=== PATIENT | male | born 1960 | race Asian ===

== ENCOUNTER 2017-12-27 19:32 | Emergency (ER) | payer OTHER ==
[~2017-12-27] VITALS: Ht 165.1 cm; Wt 56.7 kg
[~2017-12-27 19:32] MED LIST: FAMOTIDINE20 MG ORAL; NEXIUM20 MG ORAL; NORVASC5 MG ORAL
[2017-12-27] MEDS ORDERED: OMEGA 3 FISH O1 EAC1 PO (19:40)
[2017-12-27] MEDS ORDERED: ATORVASTATIN CA40 MG ORAL (19:40)
[2017-12-27] MEDS ORDERED: PANTOPRAZOLE SO40 MG ORAL (19:40)
[2017-12-27] MEDS ORDERED: BENADRYL25 MG ORAL (19:40)
[2017-12-27 19:45] VITALS: BP 129/67
[2017-12-27] MEDS ORDERED: Mylanta II UD 30ml ORAL ONE (20:00)
[2017-12-27] MEDS ORDERED: Dicyclomine HCl 10mg/5ml oral soln ORAL ONE (20:00)
[2017-12-27] MEDS ORDERED: Lidocaine 2% Visc 15ml soln ORAL ONE (20:00)
[2017-12-27 20:30] LABS: APPEARANCE,URINE CLEAR; BILIRUBIN, URINE NEGATIVE (NEGATIVE); COLOR,URINE PALE YELLOW; GLUCOSE, URINE (UA) NEGATIVE (NEGATIVE); KETONES,URINE 1+ (NEGATIVE); LEUKOCYTE ESTERASE ,URINE NEGATIVE (NEGATIVE); NITRITE,URINE NEGATIVE (NEGATIVE); PH,URINE 5 (4.5-8.0); PROTEIN,URINE NEGATIVE (NEGATIVE); UROBILINOGEN,URINE NORMAL (NORMAL)
[2017-12-27 20:34] LABS: BASOPHILS % (AUTO) 0.4 % (0.0-2.0); EOSINOPHILS % (AUTO) 1.9 % (0.0-3.0); HEMATOCRIT 41.8 % (42.0-52.0); LYMPHOCYTES % (AUTO) 42.4 % (20.0-45.0); MEAN CORPUSCULAR VOLUME 91 FL (80-99); MONOCYTES % (AUTO) 9.3 % (1.0-10.0); PLATELET COUNT 154 K/UL (150-450); RED CELL DISTRIBUTION WIDTH 10.6 % (11.6-14.8); WHITE BLOOD COUNT 6.3 K/UL (4.8-10.8)
[2017-12-27 20:44] LABS: ANION GAP 7 mmol/L (5-15); BLOOD UREA NITROGEN 17 mg/dL (7-18); CALCIUM 9.1 MG/DL (8.5-10.1); CARBON DIOXIDE 27 MMOL/L (21-32); CHLORIDE 106 MMOL/L (98-107); CREATININE 0.8 MG/DL (0.55-1.30); POTASSIUM 3.9 MMOL/L (3.5-5.1); SODIUM 140 MMOL/L (136-145)
[2017-12-27 20:45] VITALS: BP 139/67
[2017-12-27 20:48] LABS: ALANINE AMINOTRANSFERASE 75 U/L (12-78); ALBUMIN 3.9 G/DL (3.4-5.0); ALKALINE PHOSPHATASE 100 U/L (46-116); ASPARTATE AMINO TRANSFERASE 37 U/L (15-37); BILIRUBIN,TOTAL 0.7 MG/DL (0.2-1.0)
--- NOTE | 2017-12-27 21:19 | Emergency Room Report ---
History of Present Illness General Chief Complaint: Abdominal Pain Source: Patient Present Illness HPI Patient presents emergency department today complaining of epigastric pain. Patient states that he has had epigastric pain for about 2 months but progressively became worse so he came here for further evaluation. Patient does have history heavy drinking the past please no longer drinking. He denies any fever. Denies any chest pain. Has some mild nausea. Denies any vomiting diarrhea chills. Symptoms noted to be moderate to severe.No other modifying factors. No other associated signs and symptoms. No other complaints were noted. Allergies: Coded Allergies: ASPIRIN (Verified Allergy, Unknown, 01/06/16) Patient History Past Medical History: none Past Surgical History: none Pertinent Family History: none Social History: Denies: smoking, alcohol use, drug use Reviewed Nursing Documentation: PMH: Agreed; PSxH: Agreed Nursing Documentation-PMH Hx Cardiac Problems: Yes - "abnormal heart beat" Hx Hypertension: Yes Hx Cancer: No Hx Gastrointestinal Problems: Yes Hx Neurological Problems: No - alcohol abuse- quit 08/2017 Review of Systems All Other Systems: negative except mentioned in HPI Physical Exam Vital Signs Date Time Temp Pulse Resp B/P (MAP) Pulse Ox O2 Delivery O2 Flow Rate FiO2 12/27/17 19:34 98.1 65 16 130/88 97 Room Air 98.1 Sp02 EP Interpretation: reviewed, normal General Appearance: normal inspection, well appearing, no apparent distress, alert Head: atraumatic Eyes: bilateral eye normal inspection ENT: normal ENT inspection, hearing grossly normal, normal voice Neck: normal inspection, full range of motion, supple, no bony tend Respiratory: normal inspection, lungs clear, normal breath sounds, no respiratory distress, no retraction, no wheezing Cardiovascular #1: regular rate, rhythm, no edema Gastrointestinal: normal inspection, normal bowel sounds, soft, no guarding, no hernia, tenderness - epigastric Genitourinary: no CVA tenderness Musculoskeletal: normal inspection, back normal, normal range of motion Neurologic: normal inspection, alert, responsive, speech normal Psychiatric: normal inspection, judgement/insight normal, mood/affect normal Skin: normal inspection, normal color, no rash Medical Decision Making Diagnostic Impression: Primary Impression: Gastritis Additional Impression: Pancreatitis ER Course Patient presents to the emergency department today complaining of abdominal pain. Differential considerations include acute pancreatitis, cholecystitis, gastritis, hepatitis, appendicitis just to name a few. Patient laboratory workup is consistent with hepatitis with elevated pancreatic enzymes. 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 Given patient's presentation abdominal pain I discussed the patient and possibly admission versus discharge patient wants to be admitted given patient's bowel pain I felt this is reasonable and elevated lipase. We'll obtain admission. Labs Test 12/27/17 20:10 White Blood Count 6.3 K/UL (4.8-10.8) Red Blood Count 4.60 M/UL (4.70-6.10) Hemoglobin 14.0 G/DL (14.2-18.0) Hematocrit 41.8 % (42.0-52.0) Mean Corpuscular Volume 91 FL (80-99) Mean Corpuscular Hemoglobin 30.4 PG (27.0-31.0) Mean Corpuscular Hemoglobin Concent 33.4 G/DL (32.0-36.0) Red Cell Distribution Width 10.6 % (11.6-14.8) Platelet Count 154 K/UL (150-450) Mean Platelet Volume 6.4 FL (6.5-10.1) Neutrophils (%) (Auto) 46.0 % (45.0-75.0) Lymphocytes (%) (Auto) 42.4 % (20.0-45.0) Monocytes (%) (Auto) 9.3 % (1.0-10.0) Eosinophils (%) (Auto) 1.9 % (0.0-3.0) Basophils (%) (Auto) 0.4 % (0.0-2.0) Urine Color Pale yellow Urine Appearance Clear Urine pH 5 (4.5-8.0) Urine Specific [place] 1.025 (1.005-1.035) Urine Protein Negative (NEGATIVE) Urine Glucose (UA) Negative (NEGATIVE) Urine Ketones 1+ (NEGATIVE) Urine Occult Blood Negative (NEGATIVE) Urine Nitrite Negative (NEGATIVE) Urine Bilirubin Negative (NEGATIVE) Urine Urobilinogen Normal MG/DL (NORMAL) Urine Leukocyte Esterase Negative (NEGATIVE) Sodium Level 140 MMOL/L (136-145) Potassium Level 3.9 MMOL/L (3.5-5.1) Chloride Level 106 MMOL/L (98-107) Carbon Dioxide Level 27 MMOL/L (21-32) Anion Gap 7 mmol/L (5-15) Blood Urea Nitrogen 17 mg/dL (7-18) Creatinine 0.8 MG/DL (0.55-1.30) Estimat Glomerular Filtration Rate > 60 mL/min (>60) Glucose Level 107 MG/DL (74-106) Calcium Level 9.1 MG/DL (8.5-10.1) Total Bilirubin 0.7 MG/DL (0.2-1.0) Aspartate Amino Transf (AST/SGOT) 37 U/L (15-37) Alanine Aminotransferase (ALT/SGPT) 75 U/L (12-78) Alkaline Phosphatase 100 U/L (46-116) Total Protein 7.8 G/DL (6.4-8.2) Albumin 3.9 G/DL (3.4-5.0) Globulin 3.9 g/dL Albumin/Globulin Ratio 1.0 (1.0-2.7) Lipase 733 U/L (73-393) CT/MRI/US Diagnostic Results CT/MRI/US Diagnostic Results : Imaging Test Ordered: cT abdomen Avascular cirrhosis of the hips. Last Vital Signs Date Time Temp Pulse Resp B/P (MAP) Pulse Ox O2 Delivery O2 Flow Rate FiO2 12/27/17 19:45 98.1 66 16 129/67 100 Room Air 98.1 Status: improved Disposition: ADMITTED INPATIENT Condition: Serious Referrals: [facility],REFERRING (PCP) Heber Vance MD Dec 27, 2017 21:19
[2017-12-27 21:35] VITALS: BP 134/72
[2017-12-27 22:45] VITALS: BP 130/73
[2017-12-28 01:00] VITALS: BP 130/73
--- NOTE | 2017-12-28 09:23 | Diagnostic Imaging Report ---
Indication: Abdominal pain Technique: Noncontrast CT of the abdomen and pelvis utilizing automated exposure control. Axial, sagittal and coronal reformats presented. CT dose: Total DLP 542.15 mGycm; CTDI vol 10.68 mGy Comparison: None Findings: Please note that evaluation of the abdominal and pelvic viscera and vascular structures is limited without the use of intravenous and oral contrast. Within these limitations the following observations are made: Minimal dependent atelectasis noted in the posterior lower lobes. Some coronary arterial calcifications are noted. Heart size within normal limits. No pericardial effusion. Gallbladder is contracted, likely related to a nonfasting state. No definite CT evidence to suggest acute cholecystitis. Noncontrast evaluation of the liver, spleen, adrenal glands and pancreas grossly unremarkable. Kidneys are symmetric in size. No urinary tract stone or hydronephrosis identified bilaterally. Bladder and prostate unremarkable. There is no free intraperitoneal air or fluid. No evidence of small bowel obstruction. There is moderate colonic stool burden. Appendix not definitively identified however there is no focal inflammatory stranding in the right lower quadrant to suggest acute appendicitis. Abdominal aorta is normal in caliber with overall mild atherosclerotic calcifications. No bulky/conglomerate lymphadenopathy appreciated. There are degenerative changes in the lumbar spine. There is evidence of avascular necrosis of the bilateral hips. IMPRESSION: Limited exam without intravenous and oral contrast. Within these limitations: * No evidence of bowel obstruction or inflammation. Appendix not definitively identified however no focal inflammatory stranding the right lower quadrant to suggest acute appendicitis. * No urinary tract stone or hydronephrosis. * Gallbladder contracted, likely related to nonfasting state. No CT evident gallstones or evidence of pericholecystic inflammation. * Avascular necrosis of the bilateral hips. This corresponds with the statrad preliminary report. The CT scanner at [facility] is accredited by the [employer] and the scans are performed using protocols designed to limit radiation exposure to as low as reasonably achievable to attain images of sufficient resolution adequate for diagnostic evaluation.
== END 2017-12-28 01:00 | disposition other institution (70) ==
LOC: EMR 20:15
DX: K29.70 Gastritis, unspecified, without bleeding (principal); K85.90 Acute pancreatitis without necrosis or infection, unspecified; Z88.6 Allergy status to analgesic agent; I10 Essential (primary) hypertension; M87.9 Osteonecrosis, unspecified
CPT/HCPCS: 36415; 74176; 80053; 81003; 83690; 85025; 99284; J2405

== ENCOUNTER 2019-02-13 12:37 | Emergency (ER) | payer OTHER ==
[~2019-02-13] VITALS: Ht 165.1 cm; Wt 61.2 kg
[~2019-02-13 12:37] MED LIST changes: +ATORVASTATIN CA40 MG ORAL; +BENADRYL25 MG ORAL; +OMEGA 3 FISH O1 EAC1 PO; +PANTOPRAZOLE SO40 MG ORAL
[2019-02-13 12:46] VITALS: BP 148/86
--- NOTE | 2019-02-13 12:50 | NUR ---
ED Nurse Note: pt walked in to ER from home due to chest pain 07/30 for 2 days. per pt chest pain started from Lt side and does not radiate. it started 09/29 and now 07/30. pt aao x4 and ambulatory. skin clean and intact. calm and cooperative. no acute distress noted at this time. 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
--- NOTE | 2019-02-13 13:11 | NUR ---
ED Nurse Note: x-ray at bedside.
[2019-02-13 13:20] LABS: BASOPHILS % (AUTO) 0.8 % (0.0-2.0); EOSINOPHILS % (AUTO) 0.9 % (0.0-3.0); HEMATOCRIT 45.7 % (42.0-52.0); HEMOGLOBIN 15.2 G/DL (14.2-18.0); LYMPHOCYTES % (AUTO) 37.8 % (20.0-45.0); MEAN CORPUSCULAR VOLUME 90 FL (80-99); MONOCYTES % (AUTO) 8.3 % (1.0-10.0); NEUTROPHILS % (AUTO) 52.2 % (45.0-75.0); PLATELET COUNT 199 K/UL (150-450); RED BLOOD COUNT 5.07 M/UL (4.70-6.10); RED CELL DISTRIBUTION WIDTH 10.7 % (11.6-14.8); WHITE BLOOD COUNT 8.3 K/UL (4.8-10.8)
[2019-02-13 13:27] LABS: ANION GAP 8 mmol/L (5-15); BLOOD UREA NITROGEN 11 mg/dL (7-18); CALCIUM 9.3 MG/DL (8.5-10.1); CARBON DIOXIDE 28 MMOL/L (21-32); CHLORIDE 103 MMOL/L (98-107); CREATININE 0.8 MG/DL (0.55-1.30); POTASSIUM 3.7 MMOL/L (3.5-5.1); SODIUM 139 MMOL/L (136-145)
[2019-02-13 13:42] LABS: ALANINE AMINOTRANSFERASE 66 U/L (12-78); ALBUMIN 4.3 G/DL (3.4-5.0); ALBUMIN/GLOBULIN RATIO 1.1 (1.0-2.7); ALKALINE PHOSPHATASE 88 U/L (46-116); ASPARTATE AMINO TRANSFERASE 30 U/L (15-37); BILIRUBIN,TOTAL 1.1 MG/DL (0.2-1.0); CKMB 1.8 NG/ML (0.0-3.6); CREATINE KINASE 147 U/L (26-308)
[2019-02-13 13:52] LABS: BILIRUBIN,DIRECT 0.2 MG/DL (0.0-0.3)
--- NOTE | 2019-02-13 13:56 | Diagnostic Imaging Report ---
Indication: Chest pain Comparison: 02/03/2016 A single view chest radiograph was obtained. Findings: Cardiomediastinal appearance is within normal limits for age. The lungs are clear. Pulmonary vascularity is appropriate. The diaphragmatic contour is smooth and costophrenic angles are sharp. No pleural effusions are identified. The bones are unremarkable. Impression: No acute findings
--- NOTE | 2019-02-13 14:02 | NUR ---
ER DISCHARGE NOTE: Patient is cleared to be discharged per ERMD, pt is aox4, on room air, with stable vital signs. pt was given dc and prescription instructions, pt was able to verbalize understanding, pt id band and iv site removed without complications. pt is able to ambulate with steady gait. pt took all belongings.
[2019-02-13 14:03] VITALS: BP 130/72
--- NOTE | 2019-02-13 14:15 | Emergency Room Report ---
History of Present Illness General Chief Complaint: Chest Pain Source: Patient Present Illness HPI 58-year-old male presents ED for evaluation. Complaining of chest pain. Midsternal, dull, 7 out of 10, nonradiating. Comes and goes. Denies symptoms at this time. Started 2 days ago. Does note history of acid reflux. Denies shortness of breath. No other aggravating relieving factors. Denies any other associated symptoms Allergies: Coded Allergies: ASPIRIN (Verified Allergy, Unknown, 01/06/16) Patient History Past Medical History: HTN, GERD Past Surgical History: none Pertinent Family History: none Social History: Denies: smoking, alcohol use, drug use Immunizations: UTD Reviewed Nursing Documentation: PMH: Agreed; PSxH: Agreed Nursing Documentation-PMH Past Medical History: No History, Except For Hx Cardiac Problems: Yes - PVC Hx Hypertension: Yes Hx Cancer: No Hx Gastrointestinal Problems: Yes Hx Neurological Problems: No - alcohol abuse- quit 08/2017 Review of Systems All Other Systems: negative except mentioned in HPI Physical Exam Vital Signs Date Time Temp Pulse Resp B/P (MAP) Pulse Ox O2 Delivery O2 Flow Rate FiO2 02/13/19 12:40 98.1 68 20 148/86 (106) 99 Room Air Sp02 EP Interpretation: reviewed, normal General Appearance: no apparent distress, alert, GCS 15, non-toxic Head: normocephalic, atraumatic Eyes: bilateral eye normal inspection, bilateral eye PERRL ENT: hearing grossly normal, normal pharynx, no angioedema, normal voice Neck: full range of motion, supple/symm/no masses Respiratory: chest non-tender, lungs clear, normal breath sounds, speaking full sentences Cardiovascular #1: regular rate, rhythm, no edema Cardiovascular #2: 2+ carotid (R), 2+ carotid (L), 2+ radial (R), 2+ radial (L) , 2+ dorsalis pedis (R), 2+ dorsalis pedis (L) Gastrointestinal: normal bowel sounds, non tender, soft, non-distended, no guarding, no rebound Rectal: deferred Genitourinary: normal inspection, no CVA tenderness Musculoskeletal: back normal, gait/station normal, normal range of motion, non- tender Neurologic: alert, oriented x3, responsive, motor strength/tone normal, sensory intact, speech normal Psychiatric: judgement/insight normal, memory normal, mood/affect normal, no suicidal/homicidal ideation Reflexes: 3+ bicep (R), 3+ bicep (L), 3+ tricep (R), 3+ tricep (L), 3+ knee (R) , 3+ knee (L) Lymphatic: no adenopathy Medical Decision Making Diagnostic Impression: Primary Impression: Chest pain Qualified Codes: R07.9 - Chest pain, unspecified ER Course Hospital Course 58-year-old M presents ED complaining of chest pain Differential diagnoses include: Rib fracture, CT/unstable angina, contusion, muscle strain Clinical course Patient placed on stretcher. After initial history and physical I ordered labs , EKG, chest x-ray. labs reviewed- all electrolytes normal, troponins negative, no leukocytosis, hemoglobin/hematocrit stable EKG - NSR, no acute ischemic changes interpreted by me Chest x-ray-no cardiomegaly, no rib fracture, no pneumothorax, no acute process i discussed with patient. Patient was seen here and admitted for ACS previously. During that hospitalization cardiology evaluation deemed chest pain is atypical. Based on symptomatology for 2 days with negative troponin and normal EKG I believe patient can be discharged home. Close outpatient follow-up. States he has a PMD I. I feel this is a highly complex case requiring extensive working including EKG/Rhythm strip, Xray/CT/US, Blood/urine lab work, repeat exams while in ED, and administration of strong opiates/narcotics for pain control, admission to hospital or close patient follow up. Diagnosis - chest pain Stable and discharged to home. Instructed to followup with PMD. Return to ED if symptoms recur or worsen Labs Test 02/13/19 12:55 White Blood Count 8.3 K/UL (4.8-10.8) Red Blood Count 5.07 M/UL (4.70-6.10) Hemoglobin 15.2 G/DL (14.2-18.0) Hematocrit 45.7 % (42.0-52.0) Mean Corpuscular Volume 90 FL (80-99) Mean Corpuscular Hemoglobin 30.0 PG (27.0-31.0) Mean Corpuscular Hemoglobin Concent 33.3 G/DL (32.0-36.0) Red Cell Distribution Width 10.7 % (11.6-14.8) Platelet Count 199 K/UL (150-450) Mean Platelet Volume 5.9 FL (6.5-10.1) Neutrophils (%) (Auto) 52.2 % (45.0-75.0) Lymphocytes (%) (Auto) 37.8 % (20.0-45.0) Monocytes (%) (Auto) 8.3 % (1.0-10.0) Eosinophils (%) (Auto) 0.9 % (0.0-3.0) Basophils (%) (Auto) 0.8 % (0.0-2.0) Sodium Level 139 MMOL/L (136-145) Potassium Level 3.7 MMOL/L (3.5-5.1) Chloride Level 103 MMOL/L (98-107) Carbon Dioxide Level 28 MMOL/L (21-32) Anion Gap 8 mmol/L (5-15) Blood Urea Nitrogen 11 mg/dL (7-18) Creatinine 0.8 MG/DL (0.55-1.30) Estimat Glomerular Filtration Rate > 60 mL/min (>60) Glucose Level 99 MG/DL (74-106) Calcium Level 9.3 MG/DL (8.5-10.1) Total Bilirubin 1.1 MG/DL (0.2-1.0) Direct Bilirubin 0.2 MG/DL (0.0-0.3) Aspartate Amino Transf (AST/SGOT) 30 U/L (15-37) Alanine Aminotransferase (ALT/SGPT) 66 U/L (12-78) Alkaline Phosphatase 88 U/L (46-116) Total Creatine Kinase 147 U/L (26-308) Creatine Kinase MB 1.8 NG/ML (0.0-3.6) Creatine Kinase MB Relative Index 1.2 Troponin I 0.000 ng/mL (0.000-0.056) Pro-B-Type Natriuretic Peptide 20 pg/mL (0-125) Total Protein 8.3 G/DL (6.4-8.2) Albumin 4.3 G/DL (3.4-5.0) Globulin 4.0 g/dL Albumin/Globulin Ratio 1.1 (1.0-2.7) EKG Diagnostic Results Rate: normal Rhythm: NSR ST Segments: no acute changes ASA given to the pt in ED: No Rhythm Strip Diag. Results EP Interpretation: yes Rhythm: NSR, no PVC's, no ectopy Chest X-Ray Diagnostic Results Chest X-Ray Diagnostic Results : Chest X-Ray Ordered: Yes # of Views/Limited/Complete: 1 View Indication: Chest Pain EP Interpretation: Yes Interpretation: no consolidation, no effusion, no pneumothorax, no acute cardiopulmonary disease Impression: No acute disease Electronically Signed by: Electronically signed by Mikhail Loera MD Last Vital Signs Date Time Temp Pulse Resp B/P (MAP) Pulse Ox O2 Delivery O2 Flow Rate FiO2 02/13/19 14:03 98.2 65 20 130/72 99 Room Air Status: improved Disposition: HOME, SELF-CARE Condition: Stable Referrals: [facility] (PCP) Robbie Wu [facility]. [facility] Patient Instructions: Nonspecific Chest Pain Mikhail Loera MD Feb 13, 2019 14:15
--- NOTE | 2019-02-14 14:58 | Cardiology Report ---
APPROVED REPORT EKG Measurement Heart [id number] Normal sinus rhythm Cannot rule out Anterior infarct, age undetermined Abnormal ECG
== END 2019-02-13 14:04 | disposition home or self-care (01) ==
LOC: EMR 12:55
DX: R07.9 Chest pain, unspecified (principal); I10 Essential (primary) hypertension; K21.9 Gastro-esophageal reflux disease without esophagitis; Z88.6 Allergy status to analgesic agent; I49.3 Ventricular premature depolarization
CPT/HCPCS: 36415; 71045; 80053; 82248; 82550; 82553; 83880; 84484; 85025; 93005; Z7502; 99284

== ENCOUNTER 2019-04-13 10:48 | Emergency (ER) | payer OTHER ==
[~2019-04-13] VITALS: Ht 165.1 cm; Wt 62.6 kg
[2019-04-13] MEDS ORDERED: OMEPRAZOLE20 M2 ORAL (11:03)
[2019-04-13] MEDS ORDERED: Ketorolac 60mg Inj IM ONE (11:30)
--- NOTE | 2019-04-13 11:35 | NUR ---
ED Nurse Note:pt. fell off lader today and c/o lower back and back of the head pain, pt. is A/Ox4 ambulatory with steaqdy gait skin is intact, given pain meds and pt. ella to Ct scan
[2019-04-13 11:37] VITALS: BP 162/81
--- NOTE | 2019-04-13 12:51 | Diagnostic Imaging Report ---
Indications: Pain, status post fall Technique: Spiral acquisitions obtained through the brain. Angled axial and coronal 5 x 5 mm slices were reconstructed. Total dose length product 1332 mGycm. CTDI vol(s) 62 mGy. Dose reduction achieved using automated exposure control Comparison: None. Findings: No acute intracranial hemorrhage or edema. No mass effect or midline shift. Normal jovel-white differentiation. Normal size ventricles and extra axial CSF spaces. Visualized orbits and sinuses are unremarkable. The mastoids are clear. The calvarium is intact. Impression: Negative The CT scanner at [facility] is accredited by the [employer] and the scans are performed using protocols designed to limit radiation exposure to as low as reasonably achievable to attain images of sufficient resolution adequate for diagnostic evaluation.
--- NOTE | 2019-04-13 12:54 | Diagnostic Imaging Report ---
Indication: Neck pain, status post trauma Technique: Spiral acquisitions obtained through the cervical spine. No IV contrast utilized. Multiplanar reconstructions were generated. Total dose length product 198 mGycm. CTDIvol(s) mGy. Dose reduction achieved using automated exposure control. Comparison: none Findings: There is slight reversal of the normal cervical lordosis. Otherwise normal bony alignment. No prevertebral soft tissue swelling. No acute fractures. No dislocations. Vertebral body heights are preserved. At C4-5, there is mild neural foraminal stenosis on the right. At C5-6, there is moderate neural foraminal stenosis bilaterally. At C6-7, there is moderate to severe neural foraminal stenosis bilaterally. There is mild degenerative disc narrowing at C5-6 and C6-7. There is nuchal ligament ossification. Included upper aerodigestive tract and surrounding soft tissues are unremarkable. Impression: No acute bony trauma Mild degenerative changes, as described The CT scanner at [facility] is accredited by the [employer] and the scans are performed using protocols designed to limit radiation exposure to as low as reasonably achievable to attain images of sufficient resolution adequate for diagnostic evaluation.
[2019-04-13] MEDS ORDERED: ROBAXIN-750750 MG PO (13:43)
[2019-04-13] MEDS ORDERED: IBUPROFEN600 MG ORAL (13:43)
--- NOTE | 2019-04-13 13:49 | Diagnostic Imaging Report ---
Indication: Trauma, right shoulder pain Technique: One view of the chest Comparison: 02/13/2019 Findings: Lungs and pleural spaces are clear. Heart size is normal. No significant interim change Impression: No acute process
--- NOTE | 2019-04-13 13:50 | Diagnostic Imaging Report ---
Indication: Trauma, shoulder pain Technique: 3 views of the left shoulder Comparison: None Findings: No acute fractures or dislocations. Joint spaces are preserved. Impression: Negative
[2019-04-13 14:00] VITALS: BP 152/78
--- NOTE | 2019-04-13 14:00 | Emergency Room Report ---
History of Present Illness General Chief Complaint: Multiple Trauma/Fall Source: Patient Present Illness HPI Patient presents with complaints of fall from a ladder approximately 6 feet high Patient reports that this happened just prior to arrival presents with mainly pain to the lower occipital region of the head Right shoulder pain some left-sided hip pain as well Denies any lapse of consciousness denies any chest pain or shortness of breath patient also had abrasion and discomfort to the right wrist Denies any elbow pain Allergies: Coded Allergies: ASPIRIN (Verified Allergy, Unknown, 01/06/16) Patient History Past Medical History: see triage record Reviewed Nursing Documentation: PMH: Agreed; PSxH: Agreed Nursing Documentation-PM Past Medical History: No History, Except For Hx Cardiac Problems: No Hx Hypertension: Yes Hx Pacemaker: No Hx Asthma: No Hx COPD: No Hx Diabetes: No Hx Cancer: No Hx Gastrointestinal Problems: Yes - GERD Hx Dialysis: No History Of Psychiatric Problem: No Hx Neurological Problems: No Hx Cerebrovascular Accident: No Hx Seizures: No Review of Systems All Other Systems: negative except mentioned in HPI Physical Exam Vital Signs Date Time Temp Pulse Resp B/P (MAP) Pulse Ox O2 Delivery O2 Flow Rate FiO2 04/13/19 10:55 98.4 75 16 162/81 (108) 98 Room Air Sp02 EP Interpretation: reviewed, normal General Appearance: well appearing Head: normocephalic, other - Approximately 2 x 2 centimeter hematoma lower occipital region Eyes: bilateral eye PERRL ENT: hearing grossly normal, EOM grossly intact Neck: supple - Tender paracervical C2-C3 no midline step-off Respiratory: lungs clear, no respiratory distress, no retraction Cardiovascular #1: regular rate, rhythm Gastrointestinal: non tender, soft Musculoskeletal: other - Tender right anterior shoulder upon full flexion of the shoulder, sensory is intact, abrasion over the right wrist, tender palpation left hip however ambulatory Neurologic: alert, 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 as tested Skin: abrasion - As above Lymphatic: no adenopathy Medical Decision Making Diagnostic Impression: Primary Impression: fall Additional Impressions: head injury contusion ER Course Given the patient's history of presentation given the exam multiple imaging studies are initiated Patient's abdomen remains soft CT of the head and C-spine does not show any obvious acute traumatic injury X-ray of the shoulder also benign patient has done significantly better at this time will have initial conservative outpatient trial Chest X-Ray Diagnostic Results Chest X-Ray Diagnostic Results : Chest X-Ray Ordered: Yes # of Views/Limited/Complete: 1 View Indication: Chest Pain EP Interpretation: Yes Interpretation: no consolidation, no effusion, no pneumothorax Impression: No acute disease Electronically Signed by: Austin Shaw DO Other X-Ray Diagnostic Results Other X-Ray Diagnostic Results : X-Ray ordered: Right shoulder # of Views/Limited Vs Complete: 4 View Indication: Pain EP Interpretation: Yes Interpretation: no dislocation, no soft tissue swelling, no fractures Impression: No acute disease Electronically Signed by: Austin Shaw DO CT/MRI/US Diagnostic Results CT/MRI/US Diagnostic Results : Impression CT C-spineImpression: No acute bony trauma Mild degenerative changes, as described CT head: No acute disease Last Vital Signs Date Time Temp Pulse Resp B/P (MAP) Pulse Ox O2 Delivery O2 Flow Rate FiO2 04/13/19 13:38 98.4 04/13/19 11:37 75 16 Room Air 04/13/19 11:37 162/81 98 Status: improved Disposition: HOME, SELF-CARE Condition: Improved Scripts Methocarbamol* (ROBAXIN-750*) 750 Mg Tablet 750 MG PO TID, #21 TAB 0 Refills Prov: Austin Shaw DO 04/13/19 Ibuprofen* (MOTRIN*) 600 Mg Tablet 600 MG ORAL Q8H PRN for For Pain, #20 TAB 0 Refills Prov: Austin Shaw DO 04/13/19 Referrals: [facility] (PCP) Patient Instructions: Head Injury, Adult, Contusion, [id number], Abrasion, Hnda-an-Denc Additional Instructions: Patient is provided with the discharge instructions notified to follow up with primary doctor in the next 2-3 days otherwise return to the er with any worsening symptoms. Please note that this report is being documented using iStoryTime technology. This can lead to erroneous entry secondary to incorrect interpretation by the dictating instrument. Austin Sahw DO Apr 13, 2019 14:00
--- NOTE | 2019-04-13 14:00 | NUR ---
ER DISCHARGE NOTE: Patient is cleared to be discharged per ERMD, pt is aox4, on room air, with stable vital signs. pt was given dc and prescription instructions, pt was able to verbalize understanding, pt is able to ambulate with steady gait. pt took all belongings.
[2019-04-13 14:01] VITALS: BP 162/81
== END 2019-04-13 14:02 | disposition home or self-care (01) ==
LOC: EMR 11:43
DX: S09.90XA Unspecified injury of head, initial encounter (principal); M25.511 Pain in right shoulder; M25.552 Pain in left hip; I10 Essential (primary) hypertension; K21.9 Gastro-esophageal reflux disease without esophagitis; T14.8XXA Other injury of unspecified body region, initial encounter; W11.XXXA Fall on and from ladder, initial encounter; Y92.9 Unspecified place or not applicable; Z88.6 Allergy status to analgesic agent
CPT/HCPCS: 70450; 71045; 72125; 73030; 96372; Z7502; 99284

== ENCOUNTER 2019-08-23 12:50 | Outpatient (CLI) | payer MEDICAID ==
[~2019-08-23] VITALS: Ht 165.1 cm; Wt 61.7 kg
[~2019-08-23 12:50] MED LIST changes: +IBUPROFEN600 MG ORAL; +OMEPRAZOLE20 M2 ORAL; +ROBAXIN-750750 MG PO
[2019-08-23 14:04] VITALS: BP 140/75
[2019-08-23] MEDS ORDERED: MYLANTA MAXIMU355 ML PO (14:04)
[2019-08-23] MEDS ORDERED: GAVISCON ES TA1 EACH PO (14:04)
--- NOTE | 2019-08-23 17:14 | Consultation ---
DATE OF CONSULTATION: 08/23/2019 CHIEF COMPLAINT: Lack of appetite, chronic GERD. PAST MEDICAL HISTORY: 1. Hypertension. 2. . 3. GERD. 4. Arrhythmia. PAST SURGICAL HISTORY: No surgeries. MEDICATIONS: Amlodipine, atorvastatin, fish oil, Mylanta, Gaviscon. FAMILY HISTORY: Noncontributory. SOCIAL HISTORY: The patient drinks alcohol socially and smokes about 20 cigarettes a day, but quit in 2018. ALLERGIES: Aspirin. REVIEW OF SYSTEMS: Positive for GERD, loss of appetite, but denies any weight loss. No change in bowel habit. No GI bleeding. The patient had an endoscopy and colonoscopy. Endoscopy 2018 and did not show any abnormal findings. PHYSICAL EXAMINATION: VITAL SIGNS: Temperature 98.2, blood pressure 140/75, respirations 20, and pulse 70. HEENT: Normocephalic and atraumatic. Sclerae are anicteric. NECK: Supple. No evidence of obvious lymphadenopathy. CARDIOVASCULAR: Regular rate and rhythm. Plus S1 and S2. LUNGS: Clear to auscultation bilaterally. ABDOMEN: Positive bowel sounds. Soft and nontender. No rebound. No guarding. No peritoneal sign. EXTREMITIES: No cyanosis, no clubbing, no edema. ASSESSMENT AND PLAN: This is a 59-year-old male with: 1. GERD. The patient was given prescription for Protonix 40 mg in the morning and baclofen 10 mg at bedtime, was told to come back if the patient's symptoms persist. Given endoscopy in 2018, we are going to hold off on doing a repeat endoscopy at this time unless the patient has persistent symptoms despite of the treatment. 2. In terms of loss of appetite, it has been acute only one week, possibly secondary to what is going on at this time with COVID-19 pandemic the patient was told to come back if situation persist. Feliberto Carolina M.D. DR: Albert JOB#: [id number] CC:
== END 2019-08-23 15:06 | disposition home or self-care (01) ==
LOC: PAN 12:50
DX: K21.9 Gastro-esophageal reflux disease without esophagitis (principal); I10 Essential (primary) hypertension; Z79.899 Other long term (current) drug therapy; F17.210 Nicotine dependence, cigarettes, uncomplicated
CPT/HCPCS: G0463

== ENCOUNTER 2019-09-05 13:22 | Outpatient (CLI) | payer MEDICAID ==
[~2019-09-05 13:22] MED LIST changes: +GAVISCON ES TA1 EACH PO; +MYLANTA MAXIMU355 ML PO
--- NOTE | 2019-09-05 14:41 | General Progress Note ---
Assessment/Plan Assessment/Plan: HP neg gastritris eelvated Lipase but normal CT and abd us GERD anxiety ppi marinol RTC 3 months Subjective ROS Limited/Unobtainable: Yes Allergies: Coded Allergies: ASPIRIN (Verified Allergy, Unknown, 01/06/16) Objective General Appearance: alert EENT: normal ENT inspection Neck: supple Cardiovascular: normal rate Respiratory/Chest: decreased breath sounds Abdomen: normal bowel sounds, non tender, soft Extremities: non-tender Feliberto Carolina MD Sep 05, 2019 14:41
[2019-09-06] MEDS ORDERED: BACLOFEN10 MG ORAL (15:22)
[2019-09-06] MEDS ORDERED: PROTONIX40 MG ORAL (15:22)
== END 2019-09-05 15:52 | disposition home or self-care (01) ==
LOC: PAN 13:22
DX: K29.70 Gastritis, unspecified, without bleeding (principal); K21.9 Gastro-esophageal reflux disease without esophagitis; F41.9 Anxiety disorder, unspecified; Z88.6 Allergy status to analgesic agent
CPT/HCPCS: 99212

== ENCOUNTER 2020-02-05 16:15 | Emergency (ER) | payer OTHER ==
[~2020-02-05] VITALS: Ht 165.1 cm; Wt 63.5 kg
[~2020-02-05 16:15] MED LIST changes: +BACLOFEN10 MG ORAL; +PROTONIX40 MG ORAL
[2020-02-05 16:21] VITALS: BP 140/75
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
[2020-02-05] MEDS ORDERED: Methocarbamol 500mg tab ORAL ONE (16:45)
[2020-02-05] MEDS ORDERED: Acetaminophen 500mg (ES) tab ORAL ONE (16:45)
[2020-02-05] MEDS ORDERED: Bacitracin Oint UD TOPIC ONE (16:45)
--- NOTE | 2020-02-05 16:56 | NUR ---
ED Nurse Note: pt walked down to xray with cath laboratory technician, pt in stable condition.
--- NOTE | 2020-02-05 17:08 | NUR ---
ED Nurse Note: pt back from xray in stable condition.
[2020-02-05] MEDS ORDERED: ROBAXIN-500MG ORAL (17:44)
[2020-02-05] MEDS ORDERED: NORCO 5-325 TA1 EAC1 ORAL (17:44)
[2020-02-05] MEDS ORDERED: BACITRACIN15 GM TOPIC (17:44)
[2020-02-05 17:54] VITALS: BP 135/68
--- NOTE | 2020-02-05 17:54 | NUR ---
ER DISCHARGE NOTE: Patient is cleared to be discharged per ERMD, pt is aox4, on room air, with stable vital signs. pt was given dc and prescription instructions, pt was able to verbalize understanding, pt id band removed without complications. pt is able to ambulate with steady gait. pt took all belongings.
--- NOTE | 2020-02-06 11:26 | Diagnostic Imaging Report ---
EXAM: X-RAY [facility] CLINICAL HISTORY: Back pain. COMPARISON: None FINDINGS: Total of 3 views of the bar spine were obtained. Alignment is anatomic. There is very slight depression of the superior plate of L4 which appears old. No acute fracture noted. Joint spaces are unremarkable. Mild degenerative spurring noted multiple levels. No acute paraspinal soft tissue abnormality demonstrated IMPRESSION: SLIGHT DEPRESSION SUPERIOR ENDPLATE OF L4 WHICH APPEARS OLD. NO ACUTE FRACTURE OR MALALIGNMENT.
== END 2020-02-05 17:54 | disposition home or self-care (01) ==
LOC: EMR 16:37
DX: S20.229A Contusion of unspecified back wall of thorax, initial encounter (principal); S80.02XA Contusion of left knee, initial encounter; S80.212A Abrasion, left knee, initial encounter; V03.10XA Pedestrian on foot injured in collision with car, pick-up truck or van in traffic accident, initial encounter; Y92.410 Unspecified street and highway as the place of occurrence of the external cause; Z88.6 Allergy status to analgesic agent; E78.00 Pure hypercholesterolemia, unspecified; I10 Essential (primary) hypertension; K21.9 Gastro-esophageal reflux disease without esophagitis
CPT/HCPCS: 72020; Z7502; 99283

== ENCOUNTER 2020-05-01 09:18 | Emergency (ER) | payer OTHER ==
[~2020-05-01] VITALS: Ht 165.1 cm; Wt 63.5 kg
[~2020-05-01 09:18] MED LIST changes: +BACITRACIN15 GM TOPIC; +NORCO 5-325 TA1 EAC1 ORAL; +ROBAXIN-500MG ORAL
[2020-05-01 09:45] VITALS: BP 147/74
[2020-05-01] MEDS ORDERED: ZITHROMAX250 MG ORAL (11:08)
[2020-05-01 11:27] VITALS: BP 142/72
--- NOTE | 2020-05-01 13:50 | Emergency Room Report ---
History of Present Illness General Chief Complaint: Upper Respiratory Illness Source: Patient, Medical Record Present Illness HPI 59-year-old male with a history of hyperlipidemia on a statin here with a respiratory illness type symptoms of nasal congestion, nonproductive cough, sore throat. Patient symptoms have been ongoing for several days. Patient does not know whether he has been exposed to anyone body positive for COVID-19. Not take any medication for the pain. Denies fevers, chills, chest pain, palpitations, shortness of breath, back pain, abdominal pain, nausea, vomiting, diarrhea, dysuria. 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 COVID-19 Screening: Negative COVID-19 COVID-19 Testing Source: 01/22/20 Nursing Documentation-[facility] Past Medical History: No History, Except For Hx Cardiac Problems: Yes Hx Hypertension: Yes Hx Pacemaker: No Hx Asthma: No Hx COPD: No Hx Diabetes: No Hx Cancer: No Hx Gastrointestinal Problems: Yes - GERD Hx Dialysis: No Hx Neurological Problems: No Hx Cerebrovascular Accident: No Hx Seizures: No Review of Systems All Other Systems: negative except mentioned in HPI Physical Exam Vital Signs Date Time Temp Pulse Resp B/P (MAP) Pulse Ox O2 Delivery O2 Flow Rate FiO2 05/01/20 09:22 99.0 99 17 147/74 (98) 97 Room Air Sp02 EP Interpretation: reviewed, normal General Appearance: no apparent distress, alert, non-toxic Head: normocephalic, atraumatic Eyes: bilateral eye normal inspection, bilateral eye PERRL ENT: hearing grossly normal, normal pharynx, no angioedema, normal voice Neck: full range of motion, supple/symm/no masses Respiratory: chest non-tender, lungs clear, normal breath sounds, speaking full sentences Cardiovascular #1: regular rate, rhythm, no edema Cardiovascular #2: 2+ carotid (R), 2+ carotid (L), 2+ radial (R), 2+ radial (L), 2+ dorsalis pedis (R), 2+ dorsalis pedis (L) Gastrointestinal: normal bowel sounds, non tender, soft, non-distended, no guarding, no rebound Rectal: deferred Genitourinary: normal inspection, no CVA tenderness Musculoskeletal: back normal, normal range of motion, gait/station normal, non- tender Neurologic: alert, motor strength/tone normal, oriented x3, sensory intact, responsive, speech normal Psychiatric: judgement/insight normal, memory normal, mood/affect normal, no suicidal/homicidal ideation Lymphatic: no adenopathy Medical Decision Making Diagnostic Impression: Primary Impression: Upper respiratory infection ER Course Chest x-ray: No infiltrate/effusion. Mediastinum within normal limits d iaphragm. No bony abnormalities 59-year-old male here with nasal congestion, nonproductive cough, sore throat. Patient had a normal chest x-ray. He had normal vital signs in the emergency department and no evidence of respiratory distress whatsoever. It is very possible that this time that the patient is infected with COVID-19. However due to the shortage of testing available in this emergency department the patient was told that he needs to have a COVID-19 test done as an outpatient at an outpatient testing center as there is a severe lack of availability here. He expressed understanding. Told to come back to the emergency department with worsening shortness of breath. Was given a prescription for azithromycin. Discharged in stable condition. Last Vital Signs Date Time Temp Pulse Resp B/P (MAP) Pulse Ox O2 Delivery O2 Flow Rate FiO2 05/01/20 09:45 99 17 Room Air 05/01/20 09:45 99.0 147/74 97 Disposition: HOME, SELF-CARE Condition: Stable Scripts Azithromycin* (ZITHROMAX*) 250 Mg Tablet 250 MG ORAL DAILY, #6 TAB 0 Refills Take two tables once daily for 1 day, then one tablet once daily for 4 days. Prov: Noah Adair M.D. 05/01/20 Referrals: [facility]ERR[facility] (PCP) [facility] oRbbie [facility]. [facility] Patient Instructions: Upper Respiratory Infection, Adult Additional Instructions: Please get tested for Covid at an outpatient testing center Noah Adair M.D. May 01, 2020 13:50
--- NOTE | 2020-05-01 14:11 | Diagnostic Imaging Report ---
Indication: Reason For Exam: COUGH Technique: Single AP view of the chest. Comparison: Chest radiograph dated 04/13/2019 Findings: The cardiomediastinal silhouette is unchanged in appearance. No airspace consolidation. No apical pneumothoraces. Costophrenic angles are partially excluded from view. No acute osseous abnormality. IMPRESSION: 1. No airspace consolidation. 2. Incomplete evaluation of costophrenic angles.
== END 2020-05-01 11:27 | disposition home or self-care (01) ==
LOC: EMR 10:28
DX: J06.9 Acute upper respiratory infection, unspecified (principal); I11.9 Hypertensive heart disease without heart failure; Z88.6 Allergy status to analgesic agent
CPT/HCPCS: 71045; Z7502; 99283

== ENCOUNTER 2020-05-21 22:19 | Emergency (ER) | payer OTHER ==
[~2020-05-21] VITALS: Ht 165.1 cm; Wt 59.0 kg
[~2020-05-21 22:19] MED LIST changes: +ZITHROMAX250 MG ORAL
--- NOTE | 2020-05-21 22:35 | NUR ---
ED Nurse Note: Recieved pt from home, pt is Covid positive and here with c/o increasing SOB on exertion, pt is awake, alert and oriented x 4, ambulatory, no sob noted vut pt states he has it and mostly on exertion, denies chest pain or any pain, states at times his acid reflux is exerted, denies now, pt gowned and immediately placed on monitoring, heart rate and sat are normal, will continue to monitor and provide care as ordered.
[2020-05-21] MEDS ORDERED: ALBUTEROL SULF8.5 G1 INH (22:43)
--- NOTE | 2020-05-21 22:44 | Emergency Room Report ---
History of Present Illness General Chief Complaint: Dyspnea/Respdistress Source: Patient Present Illness HPI This is a 59-year-old male with a history of hyperlipidemia. He presents with chief complaint of shortness of breath. Onset for 3 weeks now. He had symptoms for 3 weeks and tested positive for Covid on May 05. He had cough and fever. That resolved a week ago. He is much better from that standpoint. He was also on antibiotics with azithromycin. He still has persistent shortness of breath. This is worse with exertion. It did improve but never went away. Better with rest. Worse with exercise in the morning. No fever chills but no chest pain. No nausea vomiting or diarrhea. 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 History Past Medical History: see triage record, old chart reviewed Past Surgical History: none Pertinent Family History: none Social History: Denies: smoking Immunizations: other Reviewed Nursing Documentation: PMH: Agreed; PSxH: Agreed Nursing Documentation-PMH Past Medical History: No History, Except For Hx Cardiac Problems: Yes Hx Hypertension: Yes - high cholestrol Hx Pacemaker: No Hx Asthma: No Hx COPD: No Hx Diabetes: No Hx Cancer: No Hx Gastrointestinal Problems: Yes - GERD Hx Dialysis: No Hx Neurological Problems: No Hx Cerebrovascular Accident: No Hx Seizures: No Review of Systems Eye: Denies: eye pain, blurred vision ENT: Denies: ear pain, nose congestion, throat swelling Respiratory: Reports: shortness of breath; Denies: cough Cardiovascular: Denies: chest pain, palpitations Gastrointestinal: Denies: abdominal pain, diarrhea, nausea, vomiting Musculoskeletal: Denies: back pain, joint pain Skin: Denies: rash Neurological: Denies: headache, numbness Endocrine: Denies: increased thirst, increased urine Hematologic/Lymphatic: Denies: easy bruising All Other Systems: negative except mentioned in HPI Physical Exam Vital Signs Date Time Temp Pulse Resp B/P (MAP) Pulse Ox O2 Delivery O2 Flow Rate FiO2 05/21/20 22:20 98.2 105 21 153/92 (112) 95 Room Air Vitals with high blood pressure Sp02 EP Interpretation: reviewed, normal General Appearance: well appearing, no apparent distress, alert Head: normocephalic, atraumatic Eyes: bilateral eye PERRL, bilateral eye EOMI ENT: hearing grossly normal, normal pharynx Neck: full range of motion, supple, no meningismus Respiratory: chest non-tender, lungs clear, normal breath sounds Cardiovascular #1: regular rate, rhythm, no murmur Gastrointestinal: normal bowel sounds, non tender, no mass, no organomegaly, no bruit, non-distended Musculoskeletal: back normal, normal range of motion, gait/station normal Psychiatric: mood/affect normal Medical Decision Making Diagnostic Impression: Primary Impression: Dyspnea Qualified Codes: R06.00 - Dyspnea, unspecified Additional Impression: COVID-19 ER Course Patient presents with mild dyspnea. On room air his oxygenation is 96 to 99%. He is in no respiratory distress. His heart rate is in the 90s. Suspect this is a sequelae of his Covid infection. No evidence of pneumonia, ACS, PE, dissection to name a few. Will discharge home with albuterol. Last Vital Signs Date Time Temp Pulse Resp B/P (MAP) Pulse Ox O2 Delivery O2 Flow Rate FiO2 05/21/20 22:20 98.2 105 21 153/92 (112) 95 Room Air Status: unchanged Disposition: HOME, SELF-CARE Condition: Stable Scripts Albuterol Sulfate* (Albuterol Sulfate Hfa*) 8.5 Gm Hfa.aer.ad 2 PUFF INH Q4H, #1 INH Prov: Chace Frias MD 05/21/20 Patient Instructions: Shortness of Breath, [id number] Chace Frias MD May 21, 2020 22:43
[2020-05-21 22:50] VITALS: BP 145/88
== END 2020-05-21 22:55 | disposition home or self-care (01) ==
LOC: EMR 22:49
DX: U07.1 COVID-19 (principal); R06.00 Dyspnea, unspecified; I11.9 Hypertensive heart disease without heart failure; E78.00 Pure hypercholesterolemia, unspecified; Z88.6 Allergy status to analgesic agent
CPT/HCPCS: 99282

== ENCOUNTER 2020-06-05 13:41 | Outpatient (CLI) | payer MEDICAID ==
[~2020-06-05 13:41] MED LIST changes: +ALBUTEROL SULF8.5 G1 INH
== END 2020-06-05 15:41 | disposition home or self-care (01) ==
LOC: PAN 13:41
DX: R10.9 Unspecified abdominal pain (principal)
CPT/HCPCS: 99212